=== PATIENT | female | born 1965 | race Caucasian/White ===

== ENCOUNTER 2016-09-28 11:23 | Emergency (ER) | payer SELFPAY ==
[~2016-09-28] VITALS: Ht 167.6 cm; Wt 140.0 kg
[~2016-09-28 11:23] MED LIST: ALEV220T14 PO; ATOR40TA49 PO; MAGN500T4 PO; POTA75TA2 PO; RIVA1TAB PO; RIVA20 PO
[2016-09-28 11:25] VITALS: BP 162/76; PULSE 130; RESP 24; TEMP 98.7; O2SAT 96
[2016-09-28 11:50] VITALS: PULSE 125
[2016-09-28] MEDS ORDERED: SODIUM CHLORIDE 0.9% FLUSH 10 ML FLUSH IVF PRN (12:00)
--- NOTE | 2016-09-28 12:11 | PD ---
HPI Chief Complaint: Back/ Neck Pain or Injury Time Seen by Provider: 11:45 Travel History International Travel<30 days: No Contact w/Intl Traveler<30days: No Traveled to known affect area: No History of Present Illness HPI 51-year-old female presents for evaluation of chronic pain. The patient reports for the past few years she has had pain in the lower back, bilateral legs which she attributes to sciatica. She describes it as an aching/burning pain which is constant, worse with movement. She has tried [id number] medications with minimal relief. Symptoms have been persistent and she has no outpatient follow-up and so she presents here for evaluation of this issue. She denies any acute change in her chronic pain. She does endorse some left proximal thumb pain which is new over the past few days, worse with movement. Upon chart review it appears that the patient was diagnosed with a right leg peritoneal DVT on September 03, 2015. She had a similar presentation at that time. She was placed on Xarelto which she quit using in May 2016 because she no longer wanted to take it. It appears that this was an unprovoked DVT. The patient is quite sedentary and obese. She denies any recent travel or surgery. She denies any chest pain but she does endorse some dyspnea on exertion which seems to be worse over the past month. No history of CHF. No other complaints. PFSH Past Medical History Hx Anticoagulant Therapy: Yes Deep Vein Thrombosis: Yes (RLE ) ?: Not Past Surgical History Surgical History: No Previous Surgery Social History Alcohol Use: Yes (OCC) Tobacco Use: Yes (4-5 cigaretts a day ) Substance Use: No Allergies-Medications (Allergen,Severity, Reaction): Uncoded Allergies: hydrocortisone eye drops. (Allergy, Intermediate, Generalized Itching, ) VERIFIED Reported Meds & Prescriptions Reported Meds & Active Scripts Active Naproxen 500 Mg Tab 500 Mg PO BID 10 Days Xarelto 20 Mg Tab (Rivaroxaban) 20 Mg Tab 20 Mg PO DAILY Lipitor 40 Mg Tab (Atorvastatin Calcium) 40 Mg Tab 40 Mg PO HS Xarelto Starter Pack 15 & 20 mg (Rivaroxaban) 1 Tab Tab 1 Tab PO DIRECTED 30 Days 15 mg twice a day for 21 days. 20 mg once a day thereafter. Reported Potassimin (Potassium) 75 Mg Tab 75 Mg PO DAILY Magnesium 500 Mg Tab 500 Mg PO DAILY Aleve Arthritis (Naproxen Sodium) 220 Mg Tab 220 Mg PO BID Review of Systems Except as stated in HPI: all other systems reviewed are Neg Physical Exam Narrative GENERAL: This is an anxious obese female who is answering questions appropriately. SKIN: Warm and dry. There is no bruising or soft tissue swelling. HEAD: Atraumatic. Normocephalic. EYES: Pupils equal and round. No scleral icterus. No injection or drainage. ENT: No nasal bleeding or discharge. Mucous membranes pink and moist. NECK: Trachea midline. No JVD. CARDIOVASCULAR: Regular rate and rhythm, tachycardic in the 120s to 130s. No murmur appreciated. RESPIRATORY: No accessory muscle use. Clear to auscultation. Breath sounds equal bilaterally. GASTROINTESTINAL: Abdomen soft, non-tender, nondistended. Hepatic and splenic margins not palpable. MUSCULOSKELETAL: No obvious deformities. Trace tibial edema to the lower extremities bilaterally. There is no bony tenderness to palpation along the thoracic or lumbar midline. There is no CVA tenderness. The patient has generalized tenderness to palpation of the lower extremities. There is some tenderness to palpation to the MCP joint of the left thumb. Pain with range of motion. NEUROLOGICAL: Awake and alert. No obvious cranial nerve deficits. Motor grossly within normal limits. Normal speech. Data Data Last Documented VS Vital Signs Date Time Temp Pulse Resp B/P Pulse Ox O2 Delivery O2 Flow Rate FiO2 09/28/16 16:00 114 18 110/60 96 Room Air 09/28/16 11:25 98.7 Orders Complete Blood Count With Diff (09/28/16 11:51) Comprehensive Metabolic Panel (09/28/16 11:51) B-Type Natriuretic Peptide (09/28/16 11:51) Act Partial Throm Time (Ptt) (09/28/16 11:51) Prothrombin Time / Inr (Pt) (09/28/16 11:51) Magnesium (Mg) (09/28/16 11:51) Ckmb (Isoenzyme) Profile (09/28/16 11:51) Troponin I (09/28/16 11:51) Iv Access Insert/Monitor (09/28/16 11:51) Electrocardiogram (09/28/16 11:51) Ecg Monitoring (09/28/16 11:51) Oximetry (09/28/16 11:51) Oxygen Administration (09/28/16 11:51) Sodium Chloride 0.9% Flush (Ns Flush) (09/28/16 12:00) Us Leg Venous Doppler Bilat (09/28/16 11:54) Ct Pulmonary Angiogram (09/28/16 12:02) Finger ([id number]) (09/28/16 ) Tramadol (Ultram) (09/28/16 12:15) Lorazepam Inj (Ativan Inj) (09/28/16 16:15) Iohexol 350 Inj (Omnipaque 350 Inj) (09/28/16 17:40) Labs Laboratory Tests Test 09/28/16 12:15 White Blood Count 10.5 TH/MM3 Red Blood Count 4.87 MIL/MM3 Hemoglobin 13.0 GM/DL Hematocrit 39.9 % Mean Corpuscular Volume 81.8 FL Mean Corpuscular Hemoglobin 26.6 PG Mean Corpuscular Hemoglobin 32.5 % Concent Red Cell Distribution Width 16.7 % Platelet Count 279 TH/MM3 Mean Platelet Volume 7.9 FL Neutrophils (%) (Auto) 73.7 % Lymphocytes (%) (Auto) 20.0 % Monocytes (%) (Auto) 4.3 % Eosinophils (%) (Auto) 1.7 % Basophils (%) (Auto) 0.3 % Neutrophils # (Auto) 7.8 TH/MM3 Lymphocytes # (Auto) 2.1 TH/MM3 Monocytes # (Auto) 0.5 TH/MM3 Eosinophils # (Auto) 0.2 TH/MM3 Basophils # (Auto) 0.0 TH/MM3 CBC Comment DIFF FINAL Differential Comment Prothrombin Time 10.7 SEC Prothromb Time International 1.0 RATIO Ratio Activated Partial 25.8 SEC Thromboplast Time Sodium Level 139 MEQ/L Potassium Level 3.9 MEQ/L Chloride Level 101 MEQ/L Carbon Dioxide Level 28.2 MEQ/L Anion Gap 10 MEQ/L Blood Urea Nitrogen 9 MG/DL Creatinine 0.72 MG/DL Estimat Glomerular Filtration 85 ML/MIN Rate Random Glucose 143 MG/DL Calcium Level 8.9 MG/DL Magnesium Level 1.9 MG/DL Total Bilirubin 0.2 MG/DL Aspartate Amino Transf 21 U/L (AST/SGOT) Alanine Aminotransferase 45 U/L (ALT/SGPT) Alkaline Phosphatase 117 U/L Total Creatine Kinase 94 U/L Troponin I LESS THAN 0.02 NG/ML B-Type Natriuretic Peptide LESS THAN 2 PG/ML Total Protein 7.4 GM/DL Albumin 3.2 GM/DL MDM Medical Decision Making Medical Screen Exam Complete: Yes Emergency Medical Condition: Yes Medical Record Reviewed: Yes Differential Diagnosis Chronic leg pain, peripheral neuropathy, intermittent claudication, herniated nucleus pulposis, DVT, PE Narrative Course This is a 51-year-old female with chronic lower back and bilateral leg pain who presents for evaluation of this issue. She was noted to be tachycardic with a heart rate of 1:30 in triage. Per chart review it appears that she is always tachycardic with a rate between the 110s to 130s. She does have a history of right leg DVT, unprovoked, diagnosed last year, noncompliant with xarelto for the past 4 months. She reports some degree of exertional dyspnea over the past month which is greater than her baseline. This may be secondary to her obesity and sedentary lifestyle but given her history, noncompliance, tachycardic, the plan is for CT pulmonary angiogram to rule out pulmonary embolism. Additional lab work, EKG, bilateral Doppler ultrasound of the lower extremities has been ordered. Left thumb x-ray has been ordered. Laboratory is unremarkable. EKG reveals sinus tachycardia with a rate of 111. Bilateral Doppler ultrasound is negative for DVT, study is somewhat limited. There were several delays in obtaining CT pulmonary angiogram because of issues with IV access initially and then when the patient was brought to the CT room she felt claustrophobic and was brought back to her hospital room. She was given Ativan and was able to eventually obtain the study. CT pulmonary and urine is negative. The patient is stable for discharge. She' ll be given NSAIDs for symptom treatment. She was given information on how to reapply for patient assistance. Diagnosis Primary Impression: Chronic pain of lower extremity, bilateral Additional Instructions: Naproxen as needed for pain. Establish care with a primary care physician for outpatient follow-up. Consider weight loss as a long-term lifestyle change that would likely help with your chronic pain. Med/Other Pt SpecificInfo: Prescription(s) given Scripts Naproxen 500 Mg [id number] Mg PO BID 10 Days Ref 0 Prov:Eliane Polanco MD 09/28/16 Disposition: 01 DISCHARGE HOME Condition: Stable Bret Boucher Sep 28, 2016 12:11
[2016-09-28] MEDS ORDERED: traMADol HCL 50 MG TAB PO ONE (12:15)
[2016-09-28 13:00] VITALS: BP 143/60; PULSE 113; RESP 26; O2SAT 95
[2016-09-28 13:11] LABS: AUTOMATED NEUTROPHIL # 7.8 TH/MM3 (1.8-7.7); BASOPHIL % 0.3 % (0.0-2.0); EOSINOPHIL # 0.2 TH/MM3 (0-0.4); EOSINOPHIL % 1.7 % (0.0-4.0); HEMATOCRIT 39.9 % (35.0-46.0); HEMO FLAGS DIFF FINAL; LYMPHOCYTE # 2.1 TH/MM3 (1.0-4.8); MEAN CELL VOLUME 81.8 FL (80.0-100.0); MEAN CORPUSCULAR HEMOGLOBIN 26.6 PG (27.0-34.0); MEAN CORPUSCULAR HGB CONC 32.5 % (32.0-36.0); MONO % 4.3 % (0.0-8.0); NEUT % 73.7 % (16.0-70.0); PLATELET COUNT 279 TH/MM3 (150-450); RED BLOOD COUNT 4.87 MIL/MM3 (4.00-5.30); RED CELL DISTRIBUTION WIDTH 16.7 % (11.6-17.2); WHITE BLOOD COUNT 10.5 TH/MM3 (4.0-11.0)
[2016-09-28 13:23] LABS: APTT (PATIENT) 25.8 SEC (24.3-30.1); PROTHROMBIN TIME - PATIENT 10.7 SEC (9.8-11.6)
[2016-09-28 13:30] LABS: ANION GAP 10 MEQ/L (5-15); AST (GOT) 21 U/L (15-37); BICARBONATE 28.2 MEQ/L (21.0-32.0); BLOOD UREA NITROGEN 9 MG/DL (7-18); CHLORIDE 101 MEQ/L (98-107); GLOMERULAR FILTRATION RATE 85 ML/MIN (>89); MAGNESIUM 1.9 MG/DL (1.5-2.5); POTASSIUM 3.9 MEQ/L (3.5-5.1); SODIUM (NA) 139 MEQ/L (136-145)
[2016-09-28 13:31] LABS: ALT (GPT) 45 U/L (10-53)
[2016-09-28 13:35] LABS: ALKALINE PHOSPHATASE 117 U/L (45-117); TOTAL BILIRUBIN ADULT 0.2 MG/DL (0.2-1.0)
--- NOTE | 2016-09-28 13:36 | RADRPT ---
EXAM DATE/TIME: 09/28/2016 12:36 [facility] COMPARISON: No previous studies available for comparison. INDICATIONS : Left hand, first digit pain, no injury. MEDICAL HISTORY : None. SURGICAL HISTORY : None. ENCOUNTER: Initial ACUITY: 2 weeks PAIN SCORE: 4/10 LOCATION: Left distal thumb FINDINGS: Examination of the first digit of the left hand demonstrates no evidence of fracture or dislocation. No radiopaque foreign bodies are seen. The soft tissues are intact. Angiocath in the dorsal medial hand. CONCLUSION: The osseous structures the 1st digit are grossly intact. Neri Pool MD on September 28, 2016 at 13:34 Board Certified Radiologist. This report was verified electronically.
[2016-09-28 13:38] LABS: CREATINE KINASE 94 U/L (26-192)
--- NOTE | 2016-09-28 15:16 | RADRPT ---
EXAM DATE/TIME: 09/28/2016 14:03 [facility] COMPARISON: No previous studies available for comparison. INDICATIONS : Bilateral leg pain. MEDICAL HISTORY : Hypertension. Chronic pain. Obstructive sleep apnea. Obesity. SURGICAL HISTORY : None. ENCOUNTER: Initial ACUITY: 3 days PAIN SCORE: 6/10 LOCATION: Bilateral legs. TECHNIQUE: Venous ultrasound of the left and right leg was performed from the inguinal ligament to the proximal calf. Real-time, color Doppler and spectral tracing, compression and augmentation techniques were us ed. FINDINGS: Limited visualization of the distal femoral and proximal posterior tibial veins bilaterally deep to patients body habitus. RIGHT LEG: There is normal compressibility of the deep venous system from the inguinal region to the proximal ca lf. No echogenic clot is seen in the lumen of the common femoral, femoral, popliteal, and posterior tibial veins. There is a normal response of the venous system to proximal and distal augmentation an d respiration. LEFT LEG: Compression could not be performed adequately in the left mid femoral vein due to patient's inability to cooperate and body habitus. Otherwise, there is normal compressibility of the deep venous system from the inguinal region to the proximal calf. No echogenic clot is seen in the lumen of the common femoral, femoral, popliteal, and posterior tibial veins. There is a normal response of the venous sy stem to proximal and distal augmentation and respiration. CONCLUSION: 1. Slightly limited examination due to nonvisualization of the distal femoral and proximal posterior tibial veins bilaterally and suboptimal compression of the left mid femoral vein. 2. Otherwise, no sonographic evidence for location of DVT. Antwon Pink MD on September 28, 2016 at 15:10 Board Certified Radiologist. This report was verified electronically.
[2016-09-28 16:00] VITALS: BP 110/60; PULSE 114; RESP 18; O2SAT 96
[2016-09-28] MEDS ORDERED: LORazepam 2 MG/ML VIAL IV PUSH ONE (16:15)
[2016-09-28] MEDS ORDERED: IOHEXOL 350 MG/ML 10 ML VIAL (for RAD DIAG) IV ONE (17:40)
--- NOTE | 2016-09-28 17:51 | RADRPT ---
EXAM DATE/TIME: 09/28/2016 17:25 [facility] COMPARISON: No previous studies available for comparison. INDICATIONS : Evaluate for embolism, short of breath. IV CONTRAST: 54 cc Omnipaque 350 (iohexol) IV RADIATION DOSE: 96.34 CTDIvol (mGy) MEDICAL HISTORY : Deep venous thrombosis. SURGICAL HISTORY : None. ENCOUNTER: Initial ACUITY: 1 month PAIN SCALE: 4/10 LOCATION: Bilateral chest TECHNIQUE: Volumetric scanning of the chest was performed using a pulmonary embolism protocol MIP images were re constructed. Using automated exposure control and adjustment of the mA and/or kV according to patien t size, radiation dose was kept as low as reasonably achievable to obtain optimal diagnostic quality images. FINDINGS: PULMONARY ARTERIES: No filling defects are seen in the pulmonary arteries through the segmental level. LUNGS: There is no consolidation or pneumothorax . No concerning pulmonary nodule is visualized. PLEURAE: There is no pleural thickening or pleural effusion. MEDIASTINUM: There is good visualization of the great vessels of the middle mediastinum. No evidence of mediastin al or hilar adenopathy/mass. MUSCULOSKELETAL: Within normal limits for patient age. MISCELLANEOUS: The visualized upper abdominal organs demonstrate no acute abnormality. CONCLUSION: No evidence of pulmonary embolism Loco Oquendo MD on September 28, 2016 at 17:46 Board Certified Radiologist. This report was verified electronically.
[2016-09-28] MEDS ORDERED: NAPR500T PO (17:53)
--- NOTE | 2016-09-29 17:55 | EKG ---
Date Performed: 09/28/2016 Time Performed: 12:57:12 PTAGE: 51 years EKG: SINUS TACHYCARDIA NONSPECIFIC T-WAVE ABNORMALITY ABNORMAL RHYTHM ECG NO PREVIOUS TRACING DOCTOR: Sukhdev Humphries Interpretating Date/Time 09/29/2016 17:53:39
== END 2016-09-28 18:48 | disposition home or self-care (01) ==
LOC: NEPD 11:23
DX: M79.604 Pain in right leg (principal); M79.605 Pain in left leg; M79.645 Pain in left finger(s); G89.29 Other chronic pain; F17.210 Nicotine dependence, cigarettes, uncomplicated; R00.0 Tachycardia, unspecified; R06.02 Shortness of breath; Z86.718 Personal history of other venous thrombosis and embolism
CPT/HCPCS: 71275; 73140; 80053; 82550; 83735; 83880; 84484; 85025; 85610; 85730; 93005; 93970; 96374; 99285; J2060; Q9967